=== PATIENT | male | born 2000 | race Caucasian/White ===

== ENCOUNTER 2023-02-07 14:59 | Emergency (ER) | payer SELFPAY ==
[~2023-02-07] VITALS: Ht 182.9 cm; Wt 80.9 kg
[2023-02-07 15:07] VITALS: TEMP 97.5
[2023-02-07 16:45] VITALS: BP 149/87; PULSE 82
== END 2023-02-07 16:50 | disposition home or self-care (01) ==
LOC: COL.ER 14:59
DX: S09.90XA Unspecified injury of head, initial encounter (principal); S01.01XA Laceration without foreign body of scalp, initial encounter; S80.212A Abrasion, left knee, initial encounter; S80.211A Abrasion, right knee, initial encounter; S90.811A Abrasion, right foot, initial encounter; M54.2 Cervicalgia; V03.90XA Pedestrian on foot injured in collision with car, pick-up truck or van, unspecified whether traffic or nontraffic accident, initial encounter; Y92.410 Unspecified street and highway as the place of occurrence of the external cause